=== PATIENT | female | born 1955 | race Caucasian/White ===

== ENCOUNTER → 2018-01-09 | Outpatient (CLI) | payer OTHER ==
--- NOTE | 2018-01-21 11:40 | RAD ---
DATE: 01/09/2018 EXAM: MAMMO LAW SCREENING BILATERAL HISTORY: Routine screening COMPARISON: 12/21/2010 This study was interpreted with the benefit of Computerized Aided Detection (CAD). Breast Density: HETERO The breast parenchyma is heterogenously dense, which could reduce sensitivity of mammography. Breast parenchyma level C. FINDINGS: 2-D and 3-D tomosynthesis imaging was performed in CC and MLO projections. No new or enlarging breast densities are seen. There are scattered microcalcifications in both breasts. These have progressed since the previous study. The distribution suggests a benign etiology. IMPRESSION: There is no mammographic evidence of malignancy in either breast. BI-RADS CATEGORY: 2 BENIGN FINDING(S) RECOMMENDED FOLLOW-UP: 12M 12 MONTH FOLLOW-UP PQRS compliance statement: Patient information was entered into a reminder system with a target due date for the next mammogram. Mammography is a sensitive method for finding small breast cancers, but it does not detect them all and is not a substitute for careful clinical examination. A negative mammogram does not negate a clinically suspicious finding and should not result in delay in biopsying a clinically suspicious abnormality. "Our facility is accredited by the [employer] Mammography Program."
== END | disposition home or self-care (01) ==
LOC: MAMMO 12:57
PROVIDERS: ATTEND Family Medicine
DX: Z12.31 Encounter for screening mammogram for malignant neoplasm of breast (principal)
CPT/HCPCS: 77063; 77067

== ENCOUNTER 2018-04-27 13:22 | Emergency (ER) | payer OTHER ==
[~2018-04-27] VITALS: Ht 167.6 cm; Wt 92.3 kg
[2018-04-27] MEDS ORDERED: ONDANSETRON PF 4 MG/2 ML VIAL. IV ONE (14:00)
[2018-04-27] MEDS ORDERED: IV NORMAL SALINE 1,000ML 1,000 ML IV SCH (14:00)
[2018-04-27 14:09] LABS: BASO % 0 % (0-3); EOS # 0.1 x10^3/uL (0.0-0.7); EOS % 2 % (0-3); HEMATOCRIT 47.8 % (36.0-47.0); HEMOGLOBIN 16.1 g/dL (12.0-15.5); LYMPH # 2.6 x10^3/uL (1.0-4.8); LYMPH % 31 % (24-48); MEAN CORPUSCULAR HEMOGLOBIN 32 pg (25-35); MEAN CORPUSCULAR HGB CONC 34 g/dL (31-37); MEAN CORPUSCULAR VOLUME 94 fL (79-100); MONO # 1.1 x10^3/uL (0.0-1.1); MONO % 13 % (0-9); NEUT # 4.6 x10^3uL (1.8-7.7); NEUT % 54 % (31-73); PLATELET COUNT 218 x10^3/uL (140-400); RED CELL DISTRIBUTION WIDTH 12.9 % (11.5-14.5); WHITE BLOOD COUNT 8.4 x10^3/uL (4.0-11.0)
[2018-04-27 14:16] LABS: BILIRUBIN,URINE MOD (NEG); CLARITY,URINE CLOUDY; COLOR,URINE AMBER; GLUCOSE,URINE NEG (NEG); UROBILINOGEN,URINE 1 mg/dL (0.2 mg/dL)
[2018-04-27 14:17] LABS: NITRITE,URINE POS (NEG)
[2018-04-27 14:22] LABS: ALBUMIN 3.7 g/dL (3.4-5.0); ALBUMIN/GLOBULIN RATIO 0.9 (1.0-1.7); CALCIUM 8.6 mg/dL (8.5-10.1); CREATININE 1.3 mg/dL (0.6-1.0); GFR 41.5; POTASSIUM 3.5 mmol/L (3.5-5.1); TOTAL PROTEIN 7.7 g/dL (6.4-8.2)
--- NOTE | 2018-04-27 14:40 | PHYS DOC ---
Past History Past Medical History: Bipolar, Hypothyroid Past Surgical History: Alcohol Use: None Drug Use: None Adult General Chief Complaint Chief Complaint: FLU SYMPTOM HPI HPI Patient is a 62 year old female who presents with complaining of nausea and vomiting and diarrhea. Patient states she started to have episodes of nausea and vomiting 4 days ago with 2 episodes of vomiting and several episodes of diarrhea the first day. Patient states her vomiting improved but she continued to have several episodes of diarrhea every day without abdominal pain. Patient complaining of decrease of appetite and energy. Patient states she called her primary care physician recommended to come to emergency room. Review of Systems Review of Systems Constitutional: Denies fever or chills [] Eyes: Denies change in visual acuity, redness, or eye pain [] HENT: Denies nasal congestion or sore throat [] Respiratory: Denies cough or shortness of breath [] Cardiovascular: No additional information not addressed in HPI [] GI: Denies abdominal pain, reports nausea, vomiting, diarrhea [] : Denies dysuria or hematuria [] Musculoskeletal: Denies back pain or joint pain [] Integument: Denies rash or skin lesions [] Neurologic: Denies headache, focal weakness or sensory changes [] Endocrine: Denies polyuria or polydipsia [] All other systems were reviewed and found to be within normal limits, except as documented in this note. Current Medications Current Medications Current Medications Medications (Trade) Dose Ordered Sig/Ez Start Time Stop Time Status Last Admin Dose Admin Ondansetron HCl (Zofran) 4 mg 1X ONCE 04/27/18 14:00 04/27/18 14:01 DC 04/27/18 14:01 4 MG Sodium Chloride 1,000 ml @ 1,000 mls/hr Q1H 04/27/18 14:00 04/27/18 14:59 04/27/18 14:01 1,000 MLS/HR Allergies Allergies Allergies Coded Allergies Type Severity Reaction Last Updated Verified No Known Drug Allergies 04/27/18 No Physical Exam Physical Exam Constitutional: Well developed, well nourished, mild distress, non-toxic appearance. [] HENT: Normocephalic, atraumatic, bilateral external ears normal, oropharynx dry , no oral exudates, nose normal. [] Eyes: PERRLA, EOMI, conjunctiva normal, no discharge. [] Neck: Normal range of motion, no tenderness, supple, no stridor. [] Cardiovascular:Heart rate regular rhythm, no murmur [] Lungs & Thorax: Bilateral breath sounds clear to auscultation [] Abdomen: Bowel sounds normal, soft, no tenderness, no masses, no pulsatile masses. [] Skin: Warm, dry, no erythema, no rash. [] Back: No tenderness, no CVA tenderness. [] Extremities: No tenderness, no cyanosis, no clubbing, ROM intact, no edema. [] Neurologic: Alert and oriented X 3, normal motor function, normal sensory function, no focal deficits noted. [] Psychologic: Affect normal, judgement normal, mood normal. [] Current Patient Data Vital Signs Vital Signs Date Time Temp Pulse Resp B/P (MAP) Pulse Ox O2 Delivery O2 Flow Rate FiO2 04/27/18 13:36 98.3 85 18 96 Room Air Lab Results Laboratory Tests Test 04/27/18 13:53 White Blood Count 8.4 x10^3/uL (4.0-11.0) Red Blood Count 5.10 x10^6/uL (3.50-5.40) Hemoglobin 16.1 g/dL (12.0-15.5) H Hematocrit 47.8 % (36.0-47.0) H Mean Corpuscular Volume 94 fL (79-100) Mean Corpuscular Hemoglobin 32 pg (25-35) Mean Corpuscular Hemoglobin Concent 34 g/dL (31-37) Red Cell Distribution Width 12.9 % (11.5-14.5) Platelet Count 218 x10^3/uL (140-400) Neutrophils (%) (Auto) 54 % (31-73) Lymphocytes (%) (Auto) 31 % (24-48) Monocytes (%) (Auto) 13 % (0-9) H Eosinophils (%) (Auto) 2 % (0-3) Basophils (%) (Auto) 0 % (0-3) Neutrophils # (Auto) 4.6 x10^3uL (1.8-7.7) Lymphocytes # (Auto) 2.6 x10^3/uL (1.0-4.8) Monocytes # (Auto) 1.1 x10^3/uL (0.0-1.1) Eosinophils # (Auto) 0.1 x10^3/uL (0.0-0.7) Basophils # (Auto) 0.0 x10^3/uL (0.0-0.2) Urine Collection Type Unknown Urine Color Ricarda Urine Clarity Cloudy Urine pH 6.0 Urine Specific [place] 1.025 Urine Protein 30 mg/dl (NEG-TRACE) Urine Glucose (UA) Neg mg/dL (NEG) Urine Ketones (Stick) Trace mg/dL (NEG) Urine Blood Trace (NEG) Urine Nitrite Pos (NEG) Urine Bilirubin Mod (NEG) Urine Urobilinogen Dipstick 1 mg/dL (0.2 mg/dL) Urine Leukocyte Esterase Neg (NEG) Sodium Level 141 mmol/L (136-145) Potassium Level 3.5 mmol/L (3.5-5.1) Chloride Level 105 mmol/L (98-107) Carbon Dioxide Level 22 mmol/L (21-32) Anion Gap 14 (6-14) Blood Urea Nitrogen 15 mg/dL (7-20) Creatinine 1.3 mg/dL (0.6-1.0) H Estimated GFR (Cockcroft-Gault) 41.5 BUN/Creatinine Ratio 12 (6-20) Glucose Level 116 mg/dL (70-99) H Calcium Level 8.6 mg/dL (8.5-10.1) Total Bilirubin 1.0 mg/dL (0.2-1.0) Aspartate Amino Transferase (AST) 36 U/L (15-37) Alanine Aminotransferase (ALT) 64 U/L (14-59) H Alkaline Phosphatase 71 U/L (46-116) Total Protein 7.7 g/dL (6.4-8.2) Albumin 3.7 g/dL (3.4-5.0) Albumin/Globulin Ratio 0.9 (1.0-1.7) L Lipase 181 U/L (73-393) EKG EKG [] Radiology/Procedures Radiology/Procedures [] Course & Med Decision Making Course & Med Decision Making Pertinent Labs reviewed. (See chart for details) Evaluation of patient in ER showed 63-year-old female patient with complaining of episodes of nausea and vomiting and diarrhea for several days. Patient had unremarkable physical exam except for mild dry oral mucosa. She treated with IV fluid and Zofran and felt better and tolerated oral intake. Plan discharge patient home to diagnose of acute gastroenteritis, UTI and dehydration. Dragon Disclaimer Dragon Disclaimer This electronic medical record was generated, in whole or in part, using a voice recognition dictation system. Departure Departure: Impression: Primary Impression: Acute gastroenteritis Additional Impressions: Urinary tract infection Dehydration Disposition: HOME, SELF-CARE (at 1457) Condition: IMPROVED Referrals: JENNY MAST MD (PCP) Patient Instructions: Dehydration, Adult, Urinary Tract Infection, Viral Gastroenteritis Additional Instructions: Drink plenty of liquids Follow-up with your primary care physician in 3-5 days Return to ER if not getting better Scripts Ondansetron Hcl (ZOFRAN) 4 Mg Tablet 1 TAB PO Q6HRS for nausea and vomiting, #12 TAB Prov: ANSHU GALLEGOS MD 04/27/18 Ciprofloxacin Hcl (CIPRO) 250 Mg Tablet 1 TAB PO BID for urinary tract infection, #6 TAB Prov: ANSHU GALLEGOS MD 04/27/18 Problem Qualifiers ANSHU GALLEGOS MD Apr 27, 2018 14:40
[2018-04-27] MEDS ORDERED: ONDA4TAB7 PO (15:00)
[2018-04-27] MEDS ORDERED: CIPR250T30 PO (15:00)
[2018-04-27 15:18] VITALS: BP 116/75
== END 2018-04-27 15:19 | disposition home or self-care (01) ==
LOC: ER 13:22
DX: K52.9 Noninfective gastroenteritis and colitis, unspecified (principal); N39.0 Urinary tract infection, site not specified; E86.0 Dehydration; E03.9 Hypothyroidism, unspecified; F31.9 Bipolar disorder, unspecified; Z98.890 Other specified postprocedural states
CPT/HCPCS: 36415; 80053; 81003; 83690; 85025; 96361; 96374; 99283; J2405; J7030